=== PATIENT | female | born 1990 | race Caucasian/White ===

== ENCOUNTER 2017-08-30 22:36 | Emergency (ER) | payer OTHER ==
[~2017-08-30] VITALS: Ht 154.9 cm; Wt 107.5 kg
[2017-08-30 22:45] VITALS: Ht 154.9 cm; Wt 107.5 kg
[2017-08-30 23:09] VITALS: BP 122/71
== END 2017-08-30 23:09 | disposition home or self-care (01) ==
LOC: ED 22:36
DX: T81.30XA Disruption of wound, unspecified, initial encounter (principal); R30.0 Dysuria; Y92.89 Other specified places as the place of occurrence of the external cause